=== PATIENT | female | born 1995 | race African-American/Black ===

== ENCOUNTER → 2019-10-08 | Outpatient (CLI) | payer MEDICAID | END | disposition home or self-care (01) | LOC: RAD 13:09 | DX: R05 Cough (principal) | CPT/HCPCS: 71046 ==

== ENCOUNTER 2020-06-11 23:47 | Emergency (ER) | payer MEDICAID ==
[~2020-06-11] VITALS: Ht 149.9 cm; Wt 52.0 kg
[2020-06-12 00:30] VITALS: BP 124/70
[2020-06-12] MEDS ORDERED: LIDOCAINE 1%/EPI 1:100,000 10 ML VIAL IJ ONE (00:30)
[2020-06-12] MEDS ORDERED: TETANUS, DIPHTHERIA, PERTUSSIS VAC/PF 0.5ML (>7YR OLD) IM ONE (00:30)
[2020-06-12] MEDS ORDERED: IBUPROFEN 600MG TABLET PO ONE (00:30)
[2020-06-12] MEDS ORDERED: BACITRACIN ZINC OINT UDPKT TOP ONE (00:30)
== END 2020-06-12 02:00 | disposition home or self-care (01) ==
LOC: ER 23:47
DX: S61.412A Laceration without foreign body of left hand, initial encounter (principal); W26.8XXA Contact with other sharp object(s), not elsewhere classified, initial encounter; Y93.89 Activity, other specified; Y92.9 Unspecified place or not applicable
CPT/HCPCS: 12002; 90471; 90715; 99283; J3490

== ENCOUNTER 2020-06-18 00:03 | Emergency (ER) | payer BC, MEDICAID ==
[~2020-06-18] VITALS: Ht 149.9 cm; Wt 51.0 kg
[2020-06-18 01:22] VITALS: BP 130/80
== END 2020-06-18 01:22 | disposition home or self-care (01) ==
LOC: ER 00:41
DX: S61.412D Laceration without foreign body of left hand, subsequent encounter (principal); Z48.01 Encounter for change or removal of surgical wound dressing; X58.XXXD Exposure to other specified factors, subsequent encounter
CPT/HCPCS: 99283

== ENCOUNTER 2020-06-20 10:57 | Emergency (ER) | payer BC ==
[~2020-06-20] VITALS: Ht 157.5 cm; Wt 51.0 kg
[2020-06-20 11:04] VITALS: BP 130/77
== END 2020-06-20 12:14 | disposition home or self-care (01) ==
LOC: ER 11:46
DX: S61.412D Laceration without foreign body of left hand, subsequent encounter (principal); X58.XXXD Exposure to other specified factors, subsequent encounter
CPT/HCPCS: 99281

== ENCOUNTER 2020-06-24 11:01 | Emergency (ER) | payer BC ==
[~2020-06-24] VITALS: Ht 152.4 cm; Wt 62.0 kg
[2020-06-24 11:07] VITALS: BP 106/78
== END 2020-06-24 13:03 | disposition home or self-care (01) ==
LOC: ER 11:39
DX: Z48.00 Encounter for change or removal of nonsurgical wound dressing (principal)
CPT/HCPCS: 99281